=== PATIENT | female | born 1935 | race Caucasian/White ===

== ENCOUNTER 2017-10-08 01:52 | Emergency (ER) | payer MEDICARE ==
[~2017-10-08] VITALS: Ht 167.6 cm; Wt 81.6 kg
[~2017-10-08 01:52] MED LIST: ACETAMINOPHEN325 M2 PO; ALUM-MAG HYDRO360 ML PO; AMINOPHYLLIN200 MG PO; ANTI-FUNGAL1% TP; ARMOUR THYROID120 M1 PO; ARMOUR THYROID90 MG PO; ASPERCREAM1 EA T; ASPERCREME76.5 GM TP; ASPIRIN CHILDRE81 MG PO; AZO STANDARD97.5 MG PO; BIOTIN1000 MCG PO; CALCIUM 600/VIT1 CAP PO; CALCIUM500 M1 PO; CIPRO250 MG PO; CIPRO500 MG PO; CLARITIN LIQUI-10 MG PO; CRANBERRY250 MG PO; CYMBALTA60 MG PO; DIGOX0.125 MG PO; DOCUSATE SODIU100 M2 PO; DOK100 MG PO; FISH OIL 10001000 MG PO; GARLIC100 MG PO; L-LYSINE500 MG PO; LIPITOR10 MG PO; LISINOPRIL10 MG PO; LOPRESSOR25 MG PO; MAGNESIUM400 M1 PO; MAGNESIUM500 MG PO; MELATONIN5 M7 PO; MIRALAX17 GM PO; MULTIVITAMIN1 TA1 PO; NATURAL POTASS595 MG PO; NORCO 5-325 TA1 EACH PO; NP THYROID30 MG PO; NP THYROID90 MG PO; OXY IR5 MG PO; OXYCODONE5 M1 PO; PANTOPRAZOLE40 MG PO; PERCOCET 325 MG1 TA2 PO; PRAD75 PO; PRAVASTATIN SOD20 MG PO; STRESS B COMPLE PO; THEREMS M PO; VITAMIN C1000 M2 PO; VITAMIN D5000 I3 PO; VITAMIN D5000 IU PO; Zestril,Prinivi40 MG PO; [UNRECOGNIZED DRUG - OTHER] PO
[2017-10-08 02:40] LABS: BASO # 0.1 10*3/uL (0.0-0.1); BASO % 0.6 % (0.0-1.0); EOS # 0.3 10*3/uL (0.0-0.4); EOS % 3.5 % (1.0-4.0); HEMOGLOBIN 13.2 g/dl (12.0-16.0); LYMPH # 3.4 10*3/uL (1.3-4.4); LYMPH % 41.3 % (27.0-41.0); MEAN CELL VOLUME 92.3 fl (81.0-99.0); MEAN CORPUSCULAR HGB 29.7 pg (27.0-31.0); MEAN CORPUSCULAR HGB CONC 32.2 g/dl (33.0-37.0); MEAN PLATELET VOLUME 10.8 fl (9.6-12.3); MONO # 0.9 10*3/uL (0.1-1.0); MONO % 10.2 % (3.0-9.0); NEUT # 3.7 10*3/uL (2.3-7.9); PLATELET COUNT AUTOMATED 214 10*3/uL (130-400); RED BLOOD COUNT 4.44 10*6/uL (4.10-5.10); RED CELL DISTRI WIDTH 13.5 % (0-14.5); WHITE BLOOD COUNT 8.3 10*3/uL (4.8-10.8)
[2017-10-08 02:50] LABS: ACT PARTIAL THROMBO TIME 23.9 SECONDS (20.8-31.5); INTERNATIONAL NORM RATIO 1.1 (2.0-3.5)
[2017-10-08 02:56] LABS: BILIRUBIN 1+ (NEGATIVE); BLOOD 3+ (NEGATIVE); CLARITY CLOUDY (CLEAR); COLOR RED (YELLOW); GLUCOSE NEGATIVE (NEGATIVE); KETONE TRACE (NEGATIVE); LEUKO ESTERASE 1+ (NEGATIVE); NITRITE POSITIVE (NEGATIVE); PH 6.5 (5.0-9.0)
[2017-10-08 03:03] LABS: ALBUMIN 3.4 gm/dl (3.1-4.5); ALKALINE PHOSPHATASE 56 U/L (45-117); BUN 19 mg/dl (7-24); CHLORIDE 102 mmol/L (98-107); CREATININE 0.99 mg/dL (0.55-1.02); LIPASE 98 U/L (73-393); POTASSIUM 4.2 mmol/L (3.5-5.1); SGOT/AST 32 IU/L (3-35); SGPT/ALT 31 U/L (12-78); SODIUM 139 mmol/L (136-145); TOTAL PROTEIN 6.9 gm/dL (6.4-8.2)
[2017-10-08 03:09] LABS: BACTERIA 1+; RBC TNTC rbc/hpf (0-2)
== END 2017-10-08 07:00 | disposition other institution (70) ==
LOC: ED 01:52
PROVIDERS: Emergency Medicine Emergency Medical Services
DX: N39.0 Urinary tract infection, site not specified (principal); R31.9 Hematuria, unspecified; I48.91 Unspecified atrial fibrillation; I10 Essential (primary) hypertension; E78.5 Hyperlipidemia, unspecified; E03.9 Hypothyroidism, unspecified; Z90.89 Acquired absence of other organs; Z96.642 Presence of left artificial hip joint; Z90.710 Acquired absence of both cervix and uterus; Z98.890 Other specified postprocedural states; Z86.73 Personal history of transient ischemic attack (TIA), and cerebral infarction without residual deficits; Z79.82 Long term (current) use of aspirin; Z79.899 Other long term (current) drug therapy; Z88.2 Allergy status to sulfonamides; Z88.1 Allergy status to other antibiotic agents; Z88.5 Allergy status to narcotic agent; Z88.6 Allergy status to analgesic agent

== ENCOUNTER 2018-06-10 09:42 | Inpatient (IN) | payer MEDICARE ==
[~2018-06-10] VITALS: Ht 157.5 cm; Wt 70.1 kg
--- NOTE | ~2018-06-10 | EKG ---
[place], [place] ELECTROCARDIOGRAM REPORT NAME: SHIRA SAMS UNIT #: [id number] ROOM: 408 DOCTOR: EPIPHANY DRAFT REPORT BIRTHDATE: [birth year] [facility] Test Date: 2018-06-10 Test Time: 09:55:44 Pat Name: SHIRA SAMS Department: Room: 408 Gender: F Business Account Manager: Mattie Rizzo : 1935 Requested By: PLACIDO STROUD Order Number: [id number] Reading MD: Damon Boles MD Measurements Intervals [place] Rate: 82 P: 39 ME: 187 QRS: 36 QRSD: 93 T: 14 QT: 385 QTc: 450 Interpretive Statements Sinus rhythm Borderline low voltage, extremity leads Minimal ST depression, lateral leads Electronically Signed On 06-14-2018 11:44:29 PST by Damon Boles MD CM:EKGRPT:ELECTROCARDIOGRAM REPORT [id number] PLACIDO STROUD EPIPHANY DRAFT REPORT PLACIDO STROUD
--- NOTE | ~2018-06-10 | CON ---
[place], [place] REPORT OF CONSULTATION NAME: SHIRA SAMS UNIT #: [id number] ROOM: 408 DOCTOR: ANJELICA GARCIA MD BIRTHDATE: [birth year] DOS: 06/11/2018 REASON FOR CONSULTATION: Gram-negative bacteremia. CHIEF COMPLAINT: Altered mental status. HISTORY OF PRESENT ILLNESS: This is an 83-year-old female who was brought to the ER by EMS for altered mental status. Currently, the patient is not the best historian. Most of the history obtained is from medical records. It was reported that around [place] time, the patient had change in her behavior and was found to be unresponsive on admission to the ER. Her UA was checked that showed pyuria and her blood cultures 4/4 bottles on admission are positive for gram-negative bacilli as well as her urine culture shows more than 100,000 colonies of gram-negative bacteria. She did came in with leukocytosis of 16.3, which on repeat is 14.6. No lactic acidosis. The patient has been started on cefepime 2 g q. 12 hours for now. PAST MEDICAL HISTORY: Significant for atrial fibrillation, stroke, closed fracture of multiple pubic rami, bladder prolapse, hypertension, hyperlipidemia, hypothyroidism, urinary incontinence. PAST SURGICAL HISTORY: Adenectomy bladder suspension procedure, hysterectomy, left hip replacement, right breast biopsy, and tonsillectomy. SOCIAL HISTORY: Nonsmoker, nonalcoholic, no illicit drug use. FAMILY HISTORY: Noncontributory at this time. ALLERGIES: SULFA DRUGS, TETRACYCLINE and other allergies as per the EMR. HOME MEDICATIONS: Reviewed. REVIEW OF SYSTEMS: Cannot be obtained at this point as the patient is poorly responsive. PHYSICAL EXAMINATION: VITAL SIGNS: Stable. GENERAL: The patient is not alert and oriented. HEENT: Atraumatic, normocephalic. PERRLA, EOMI. RESPIRATORY: Air entry bilaterally equal. No wheeze or crackles. HEART: S1, S2 normal. Regular rate and rhythm. ABDOMEN: Soft, nontender, nondistended. BACK: No CVA tenderness. GENITOURINARY: Edmonds catheter in place. NEUROLOGIC: Limited exam. SKIN: No rash. LABORATORY DATA AND IMAGING: Reviewed, mentioned in HPI. ASSESSMENT: [place], [place] REPORT OF CONSULTATION NAME: SHIRA SAMS UNIT #: [id number] ROOM: 408 DOCTOR: ANJELICA GARCIA MD BIRTHDATE: [birth year] 1. Pyelonephritis. 2. Gram-negative bacteremia from above. 3. Complicated urinary tract infection with history of bladder suspension procedure/urinary incontinence. PLAN: 1. At this time, okay to keep cefepime 2 grams q. 12. 2. With her history of multiple UTIs in the past with E. coli as well as bladder suspension surgeries, I would recommend getting an imaging. CT abdomen without contrast. Repeat blood cultures have been ordered today. I will follow the patient closely. Thank you for your consult. Please call for any questions. Anjelica Garcia MD CM:CONSTR:REPORT OF CONSULTATION [id number] 06/12/18 1034 interface
[2018-06-10 09:44] VITALS: BP 202/76
[2018-06-10 10:03] LABS: BILIRUBIN NEGATIVE (NEGATIVE); BLOOD 3+ (NEGATIVE); CLARITY CLOUDY (CLEAR); COLOR YELLOW (YELLOW); GLUCOSE NEGATIVE (NEGATIVE); KETONE NEGATIVE (NEGATIVE); LEUKO ESTERASE 3+ (NEGATIVE); NITRITE POSITIVE (NEGATIVE); SPECIFIC GRAVITY 1.015 (1.005-1.030); UROBILINOGEN 0.2 E.U./dl (0.2-1.0)
[2018-06-10 10:14] LABS: HEMATOCRIT 45.9 % (37.0-47.0); MEAN CELL VOLUME 90.2 fl (81.0-99.0); MEAN CORPUSCULAR HGB 29.5 pg (27.0-31.0); MEAN CORPUSCULAR HGB CONC 32.7 g/dl (33.0-37.0); MEAN PLATELET VOLUME 11.6 fl (9.6-12.3); PLATELET COUNT AUTOMATED 198 10*3/uL (130-400); RED BLOOD COUNT 5.09 10*6/uL (4.10-5.10); RED CELL DISTRI WIDTH 14.1 % (0-14.5); WHITE BLOOD COUNT 16.3 10*3/uL (4.8-10.8)
[2018-06-10] MEDS ORDERED: COLACE100 MG PO (10:14)
[2018-06-10] MEDS ORDERED: ATORVASTATIN CA80 M1 PO (10:14)
[2018-06-10] MEDS ORDERED: DIGOXIN125 MCG PO (10:15)
[2018-06-10] MEDS ORDERED: CYMBALTA20 M1 PO (10:15)
[2018-06-10] MEDS ORDERED: LISINOPRIL40 MG PO (10:16)
[2018-06-10] MEDS ORDERED: PROBIOTIC1 EAC1 PO (10:16)
[2018-06-10] MEDS ORDERED: Synthroid,Lev150 MCG PO (10:17)
[2018-06-10] MEDS ORDERED: CALCIUM 600 +1 EAC4 PO (10:20)
[2018-06-10] MEDS ORDERED: COREG12.5 M1 PO (10:22)
[2018-06-10] MEDS ORDERED: ASPIRIN325 M2 PO (10:23)
[2018-06-10 10:25] LABS: BACTERIA 4+; WBC TNTC wbc/hpf (0-5)
[2018-06-10] MEDS ORDERED: MILK OF MA400 MG/5 M PO (10:25)
[2018-06-10] MEDS ORDERED: DULCOLAX10 M1 R (10:25)
[2018-06-10] MEDS ORDERED: [UNRECOGNIZED DRUG - OTHER] R (10:25)
[2018-06-10 10:26] LABS: ALBUMIN 2.6 gm/dl (3.1-4.5); CREATININE 1.15 mg/dL (0.55-1.02); POTASSIUM 3.6 mmol/L (3.5-5.1); TOTAL PROTEIN 7.7 gm/dL (6.4-8.2)
[2018-06-10] MEDS ORDERED: ROBITUSSIN-DM 110 ML PO (10:26)
[2018-06-10 10:27] LABS: TROPONIN I 0.025 ng/ml (<0.045)
[2018-06-10 10:35] LABS: PLATELET SUFFICIENCY NORMAL (NORMAL); TOTAL CELLS COUNTED 100 #CELLS
[2018-06-10 10:36] LABS: DIGOXIN 1.1 ng/ml (0.8-2.0)
[2018-06-10 10:38] VITALS: BP 177/58
[2018-06-10 11:55] VITALS: BP 178/60
[2018-06-10 13:11] VITALS: BP 148/54
--- NOTE | 2018-06-10 13:33 | NUR ---
[facility] 83, admitted to , under the services of HOLA Fairbanks DO with a diagnosis of SEYMOUR, HTN. Chief complaint is DENIES C/O AT PRESENT. Patient arrived via bed from ER. Monitor applied. Initial assessment completed. Vital signs taken and recorded. HOLA FAIRBANKS DO notified of admission to the unit. Orders received. See assessment for past medical history, medications and allergies. Patient and/or family oriented to unit. [facility] visitation policy reviewed. Clothing/patient valuable form completed. MARIA L HILL
--- NOTE | 2018-06-10 15:31 | NUR ---
SPEECH PATHOLOGY Patient seen for bedside swallowing evaluation this date due to concerns of coughing while eating. Patient in bed sleeping upon clinician arrival and able to be awoken with auditory stimuli. Patient on 2 liters O2 via NC with baseline Sp02 at 94%. Patient repositioned to be upright in bed at 90 degree angle. Patient with limited expressive communicative abilities, but demonstrated ability to answer y/n questions via head nods and shakes. Patient also verbalized "yes" on two opportunities with severely reduced vocal intensity. Patient verbally provided with 5 y/n questions, with 3/5 correct responses which included correct answer to location, patient's name, and year. Patient incorrect response on 1/5 trials and did not provide response on remaining trial. Oral motor exam administered. Patient able to follow simple 1-step verbal commands following clinician models. Lingual and labial strength and ROM reduced, in addition to reduced volitional cough. Patient not able to elicit volitional swallow. Patient provided with ice chips x 3. Patient independently chewed ice chips, but required moderate verbal cueing and prompts to initiate pharyngeal swallow. Laryngeal elevation judged to be wfl. Sips of thin liquid via straw administered x 4. Consecutive sips triggered timely pharyngeal swallow, however on final sip or with single sip, patient demonstrated oral holding and required moderate cueing to initiate pharyngeal swallow. No overt s/s of aspiration were observed during all trials of thin liquid. Small bites of applesauce via tsp administered. Patient demonstrated bolus formation, however required mod-max verbal cueing to initiate pharyngeal swallow. Increase bite size administered to heighten sensory input to elicit reflexive pharyngeal swallow, however, patient required verbal cueing to initaite pharyngeal swallow. Reflexive cough demonstrated following trial of tsp of applesauce via spoon. Patient's oral cavity was checked for remaining residues following final trial of PO intake. Sp02 levels remained at 94-95% throughout evaluation. Patient currently is not safe for an oral diet and is recommended NPO. Although no overt s/s of pen/aspiration were observed with sips of thin liquid, patient demonstrates oral holding of thin and pureed consistencies, and requires mod-max verbal cueing and prompts to initaite pharyngeal swallow which reduces safety of patient's swallow mechanism. Patient recommended MBS to furter assess anatomy and physiology of oropharnygeal swallow mechanism, however patient currently is not appropriate for MBS due to reduced ability to follow directions. Speech Therapy to continue follow up treatment of patient to assess for increased awareness and appropriateness for initiation of oral diet and MBS. Results and recommendations were shared with patient's nurse who verbalized understanding. Thank you for this consultation. Please contact speech therapy with any questions. Maylin Gracia MA [employer]
[2018-06-10 16:00] VITALS: BP 154/60
[2018-06-10 20:00] VITALS: BP 156/60; BP 165/56
--- NOTE | 2018-06-10 22:47 | NUR ---
NOTIFIED DR. MORRIS OF CRITICAL BLOOD CULTURES.
[2018-06-11] VITALS (8 sets, daily range): BP systolic 160–210; BP diastolic 56–88
--- NOTE | 2018-06-11 | NUR ---
SLEEPING. NO ACUTE DISTRESS NOTED. RESPIRATIONS EASY. LUNGS DIMINISHED, CLEAR. PULSE OX 95% RA. ABD SOFT WITH HYPOACTIVE BOWEL SOUNDS. SLATER PATENT. TEDS APPLIED PER ORDER. IV FLUIDS INFUSING PER ORDER. CALL LIGHT WITHIN REACH. BED ALARM MAINTAINED FOR SAFETY
--- NOTE | 2018-06-11 01:15 | NUR ---
DR MORRIS AWARE OF + BC. PATIENT RECEIVING IV ANTIBIOTICS WITH REPEAT CULTURES PENDING
--- NOTE | 2018-06-11 06:00 | NUR ---
SLEPT THROUGHOUT NIGHT WITH NO DISTRESS NOTED. RESPIRATIONS EASY. O2 IN USE. IV FLUIDS MAINTAINED. BED ALARM MAINTAINED FOR SAFETY
[2018-06-11 06:29] LABS: HEMATOCRIT 45.4 % (37.0-47.0); HEMOGLOBIN 13.9 g/dl (12.0-16.0); MEAN CELL VOLUME 92.5 fl (81.0-99.0); MEAN CORPUSCULAR HGB 28.3 pg (27.0-31.0); MEAN CORPUSCULAR HGB CONC 30.6 g/dl (33.0-37.0); PLATELET COUNT AUTOMATED 189 10*3/uL (130-400); RED BLOOD COUNT 4.91 10*6/uL (4.10-5.10); RED CELL DISTRI WIDTH 14.5 % (0-14.5); WHITE BLOOD COUNT 14.6 10*3/uL (4.8-10.8)
[2018-06-11 06:57] LABS: ALBUMIN 2.3 gm/dl (3.1-4.5); BUN 37 mg/dl (7-24); CHLORIDE 120 mmol/L (98-107); CHOLESTEROL 122 mg/dL (<200); CREATININE 1.01 mg/dL (0.55-1.02); PHOSPHOROUS 3.3 mg/dL (2.5-4.9); POTASSIUM 3.5 mmol/L (3.5-5.1); SGOT/AST 30 IU/L (3-35); SODIUM 154 mmol/L (136-145); TRIGLYCERIDES 169 mg/dl (<150); VLDL CHOLESTEROL 34 mg/dL (6-40)
[2018-06-11 07:04] LABS: PLATELET SUFFICIENCY NORMAL (NORMAL); TOTAL CELLS COUNTED 100 #CELLS
[2018-06-11 07:06] LABS: ALKALINE PHOSPHATASE 81 U/L (45-117); FREE T4 1.08 ng/dl (0.76-1.46); HDL CHOLESTEROL 13 mg/dl (40-60); LDL CHOLESTEROL 75 mg/dL (9-159); PREALBUMIN 6 mg/dl (20-40); SGPT/ALT 22 U/L (12-78)
[2018-06-11 07:43] LABS: VITAMIN D, 25-HYDROXY 29.7 ng/mL (30-100)
--- NOTE | 2018-06-11 08:05 | NUR ---
ID CONSULT NOTIFIED AT THIS TIME.
--- NOTE | 2018-06-11 08:13 | NUR ---
RETURNED CALL. NEW ORDERS RECEIVED
--- NOTE | 2018-06-11 08:34 | NUR ---
UPDATED ON PATIENTS CONDITION. NEW ORDERS TO BE ENTERED PER PHYSICIAN.
--- NOTE | 2018-06-11 11:30 | NUR ---
NOTIFIED OF CONSULT. NEW ORDERS RECEIVED.
--- NOTE | 2018-06-11 13:15 | NUR ---
IV DIG GIVEN SLOWLY PER ORDER. HR 75. WILL CONTINUE TO MONITOR. CALL LIGHT WITHIN REACH.
--- NOTE | 2018-06-11 16:02 | NUR ---
NOTIFIED REGARDING BP 210/88. NEW ORDERS TO BE ENTERED.
--- NOTE | 2018-06-11 16:13 | NUR ---
IV HYDRALAZINE GIVEN AT THIS TIME PER ORDER FOR ELEVATED BP. WILL RECHECK BP FOR EFFECTIVENESS.
--- NOTE | 2018-06-11 16:21 | NUR ---
NOTIFIED REGARDING MOST RECENT BP 173/75. NO NEW ORDERS. WILL CONTINUE TO MONITOR.
--- NOTE | 2018-06-11 19:37 | NUR ---
24 HR chart check completed.
--- NOTE | 2018-06-11 20:00 | NUR ---
RESTING WITH HOB ELEVATED. RESPIRATIONS EASY. LUNGS DIMINISHED WITH POOR INSPIRATORY EFFORT. PULSE OX 96% 2L. SLATER PATENT. IV FLUIDS INFUSING PER ORDER. CALL LIGHT WITHIN REACH. BED ALARM MAINTAINED FOR SAFETY
--- NOTE | 2018-06-11 21:01 | NUR ---
IV LOPRESSOR GIVEN PER ORDER FOR BP 178/68
--- NOTE | 2018-06-11 23:40 | NUR ---
BP CURRENTLY 180/62 AFTER RECEIVING LORPRESSOR IV AT 2100. DR GAMEZ CONTACTED AND INFORMED. NEW ORDERS TO BE ENTERED
[2018-06-12] VITALS (9 sets, daily range): BP systolic 119–184; BP diastolic 34–74
--- NOTE | 2018-06-12 01:20 | NUR ---
BP IMPROVED 146/52 AFTER RECEIVING HYDRALAZINE IV. DR GAMEZ PRESENT ON FLOOR AND INFORMED
--- NOTE | 2018-06-12 04:00 | NUR ---
SLEEPING. BP 158/60. IV FLUIDS MAINTAINED
[2018-06-12 06:27] LABS: HEMATOCRIT 45.2 % (37.0-47.0); HEMOGLOBIN 14.3 g/dl (12.0-16.0); MEAN CELL VOLUME 92.8 fl (81.0-99.0); MEAN CORPUSCULAR HGB 29.4 pg (27.0-31.0); MEAN CORPUSCULAR HGB CONC 31.6 g/dl (33.0-37.0); MEAN PLATELET VOLUME 11.5 fl (9.6-12.3); PLATELET COUNT AUTOMATED 204 10*3/uL (130-400); RED BLOOD COUNT 4.87 10*6/uL (4.10-5.10); RED CELL DISTRI WIDTH 14.7 % (0-14.5); WHITE BLOOD COUNT 12.3 10*3/uL (4.8-10.8)
--- NOTE | 2018-06-12 06:56 | NUR ---
BC + E COLI. DR GAMEZ CONTACTED AND INFORMED. PATIENT CURRENTLY BEING SEEN BY INFECTIOUS DISEASE AND RECEIVING IV ANTIBIOTICS. NO FURTHER ORDERS RECEIVED
[2018-06-12 07:00] LABS: ALBUMIN 2.2 gm/dl (3.1-4.5); ALKALINE PHOSPHATASE 72 U/L (45-117); CHLORIDE 117 mmol/L (98-107); PHOSPHOROUS 2.8 mg/dL (2.5-4.9); POTASSIUM 3.2 mmol/L (3.5-5.1); SGOT/AST 34 IU/L (3-35); SGPT/ALT 22 U/L (12-78); SODIUM 152 mmol/L (136-145); TOTAL PROTEIN 6.6 gm/dL (6.4-8.2)
[2018-06-12 07:01] LABS: BUN 27 mg/dl (7-24)
[2018-06-12 07:06] LABS: ATYPICAL LYMPHS 3 % (0-0); PLATELET SUFFICIENCY NORMAL (NORMAL); TOTAL CELLS COUNTED 100 #CELLS
[2018-06-12 07:07] LABS: TOXIC GRANULATION SLIGHT; VACUOLATION OF NEUTROPHILS SLIGHT
--- NOTE | 2018-06-12 08:37 | NUR ---
NOTIFIED REGARDING AM LABS. NEW ORDERS RECEIVED.
--- NOTE | 2018-06-12 11:37 | NUR ---
IV LOPRESSOR GIVEN AT THIS TIME PER PRN ORDER FOR BP 176/60. WILL MONITOR EFFECTIVENESS. HR 70'S. BED LOCKED AND IN LOWEST POSITION.
--- NOTE | 2018-06-12 12:00 | NUR ---
ML ROWELL NOTIFIED REGARDING ELEVATED BP. WILL RECHECK EFFECTIVENESS OF LOPRESSOR.
--- NOTE | 2018-06-12 12:41 | NUR ---
BP NOW 164/44. WILL CONTINUE TO MONITOR. HR 70. IVF MAINTAINED. CALL LIGHT WITHIN REACH. PT RESTING COMFORTABLY.
--- NOTE | 2018-06-12 14:30 | NUR ---
DAUGHTER HERE TO VISIT. ML ROWELL IN TO SPEAK WITH FAMILY REGARDING PLAN OF CARE.
--- NOTE | 2018-06-12 15:29 | NUR ---
SPOKE WITH POA REGARDING PEG TUBE INSERTION. POA NO LONGER WANTS TO PROCEED WITH PEG TUBE INSERTION. ML ROWELL NOTIFIED. WILL NOTIFY .
--- NOTE | 2018-06-12 17:15 | NUR ---
NOTIFIED REGARDING REFUSAL FOR PEG TUBE INSERTION.
--- NOTE | 2018-06-12 19:42 | NUR ---
24 HR chart check completed.
--- NOTE | 2018-06-12 20:30 | NUR ---
RESTING WITH EYES CLOSED, OFFERS NO VERBAL RESPONSE. RESPIRATIONS EASY. LUNGS DIMINISHED WITH POOR INSP EFFORT. PULSE OX 96% 2L. +1 BLE EDEMA, TEDS PRESENT AT BEDSIDE. SLATER PATENT. IV FLUIDS INFUSING PER ORDER. CALL LIGHT WITHIN REACH. BED ALARM MAINTAINED FOR SAFETY
[2018-06-13] VITALS: BP 111/42; BP 120/62
--- NOTE | 2018-06-13 | NUR ---
CONTINUES TO REST WITH NO ACUTE DISTRESS NOTED. RESPIRATIONS EASY. VSS. IV FLUIDS MAINTAINED PER ORDER. CALL LIGHT WITHIN REACH. BED ALARM MAINTAINED FOR SAFETT
--- NOTE | 2018-06-13 02:45 | NUR ---
RESTING WITH EYES CLOSED AND NO DISTRESS NOTED
--- NOTE | 2018-06-13 06:00 | NUR ---
STATUS UNCHANGED. RESTING WITH EYES CLOSED. RESPIRATIONS EASY. O2 IN USE. IV FLUIDS MAINTAINED. CALL LIGHT WITHIN REACH. BED ALARM MAINTAINED
--- NOTE | 2018-06-13 06:35 | NUR ---
PHYSICAL THERAPY Nursing screen recieved. Patient not appropriate for PT services at this time. Thank you. Angie Hicks,PT
[2018-06-13 06:38] LABS: HEMATOCRIT 42.4 % (37.0-47.0); HEMOGLOBIN 12.9 g/dl (12.0-16.0); MEAN CELL VOLUME 93.6 fl (81.0-99.0); MEAN CORPUSCULAR HGB 28.5 pg (27.0-31.0); MEAN CORPUSCULAR HGB CONC 30.4 g/dl (33.0-37.0); MEAN PLATELET VOLUME 11.5 fl (9.6-12.3); PLATELET COUNT AUTOMATED 195 10*3/uL (130-400); RED BLOOD COUNT 4.53 10*6/uL (4.10-5.10); RED CELL DISTRI WIDTH 14.9 % (0-14.5); WHITE BLOOD COUNT 11.2 10*3/uL (4.8-10.8)
[2018-06-13 07:04] LABS: ALBUMIN 1.9 gm/dl (3.1-4.5); ALKALINE PHOSPHATASE 63 U/L (45-117); BUN 25 mg/dl (7-24); CHLORIDE 115 mmol/L (98-107); CREATININE 0.95 mg/dL (0.55-1.02); POTASSIUM 3.4 mmol/L (3.5-5.1); SGOT/AST 54 IU/L (3-35); SGPT/ALT 32 U/L (12-78); SODIUM 148 mmol/L (136-145); TOTAL PROTEIN 6.1 gm/dL (6.4-8.2)
[2018-06-13 07:11] LABS: BASOPHILS 1 % (0-1); TOTAL CELLS COUNTED 100 #CELLS
[2018-06-13 07:12] LABS: PLATELET SUFFICIENCY NORMAL (NORMAL)
[2018-06-13 08:00] VITALS: BP 160/67
--- NOTE | 2018-06-13 09:00 | NUR ---
case management visits with patient, patient is a retirement resident of [facility]. will contact [facility] and see if patient is able to return when medically stable
--- NOTE | 2018-06-13 09:40 | NUR ---
SPEECH PATHOLOGY Treatment attempted this am. Patient was in bed, with eyes closed and did not respond to any stimuli. Recommend continued NPO due to severity of status. Continue treatment as appropriate. SHALOM ZAMORA MSCCC-BUSINESS ANALYST SALES OPERATIONS
[2018-06-13 12:00] VITALS: BP 150/52
--- NOTE | 2018-06-13 12:11 | NUR ---
Nutritional Support Services Note: Pt remains NPO, Refuses Peg tube. IVF as ordered. Condition is poor. Will continue to follow. Helen Galindo Rdn Ld
--- NOTE | 2018-06-13 12:35 | NUR ---
Spoke with Kaia at [facility]. Patient is [facility] at [facility] and does not require a precert prior to return. Pt. can return when stable for discharge.
[2018-06-13 16:00] VITALS: BP 159/42
[2018-06-13 20:00] VITALS: BP 177/42
[2018-06-14 01:17] VITALS: BP 176/60
--- NOTE | 2018-06-14 02:02 | NUR ---
1X HYDRALAZINE GIVEN AT THIS TIME FOR SBP 170'S
[2018-06-14 08:00] VITALS: BP 164/60
[2018-06-14 11:59] VITALS: BP 155/44
--- NOTE | 2018-06-14 13:34 | NUR ---
PT MEDICATED WITH TYLENOL PER PRN ORDER FOR C/O HEADACHE. WILL MONITOR FOR EFFECTIVENESS
[2018-06-14 16:00] VITALS: BP 179/52
[2018-06-14 20:00] VITALS: BP 166/60
--- NOTE | 2018-06-14 21:00 | NUR ---
dr perez notified of pt's bp 166/60 and hr in 50's. also stated that standing order for metoprolol did not help her bp last night. dr states to watch pt's bp and he will review her chart
[2018-06-15] VITALS: BP 160/50
[2018-06-15 08:00] VITALS: BP 178/50
--- NOTE | 2018-06-15 09:48 | NUR ---
SPEECH PATHOLOGY Treatment attempted this am. Patient was completely unresponsive. Hospice has been consulted. Patient remains NPO due to poor status. Discharge speech pathology services at this time. Thank you for this referral. SHALOM ZAMORA MSCCC-AIRCRAFT SYSTEMS REPAIRER
[2018-06-15 12:00] VITALS: BP 152/58
--- NOTE | 2018-06-15 12:00 | NUR ---
Spoke with Richa at [facility] who stated the nurse is on her way to the hospital now and should be here within 15 minutes to meet with family and finalize all paperwork.
[2018-06-15] MEDS ORDERED: LOPRESSOR5 MG/5 ML IV (14:45)
[2018-06-15] MEDS ORDERED: ONDANSETRON4 MG SL (14:45)
--- NOTE | 2018-06-15 14:50 | NUR ---
Faxed updated clinicals to [facility] for review. [facility] stated they will admit patient tomorrow afternoon after she returns to the senior living, they will not be admitting patient under GIP.
--- NOTE | 2018-06-15 19:24 | NUR ---
[facility] HERE TO TRANSPORT PATIENT TO [facility]. IV HEP LOCK AND SLATER MAINTAINED PER DOCTOR ORDER. PER DAYSHIFT NURSE, [facility] IS AWARE
--- NOTE | 2018-06-15 19:31 | NUR ---
JACQUE GIPSON LEFT WITH PATIENT AT THIS TIME
== END 2018-06-15 19:31 | disposition hospice, home (50) | DRG 682 ==
LOC: ED 09:42 → EDHOLD 12:29 → 4E 12:29
PROVIDERS: Internal Medicine Gastroenterology; Internal Medicine Nephrology; Nurse Practitioner Family; Registered Nurse; ADMIT Internal Medicine
DX: N17.0 Acute kidney failure with tubular necrosis (principal); G93.41 Metabolic encephalopathy; E43 Unspecified severe protein-calorie malnutrition; I16.1 Hypertensive emergency; E87.0 Hyperosmolality and hypernatremia; R78.81 Bacteremia; Z66 Do not resuscitate; Z51.5 Encounter for palliative care; N12 Tubulo-interstitial nephritis, not specified as acute or chronic; E86.0 Dehydration; I48.2 Chronic atrial fibrillation; I10 Essential (primary) hypertension; B96.20 Unspecified Escherichia coli [E. coli] as the cause of diseases classified elsewhere; E87.6 Hypokalemia; E03.9 Hypothyroidism, unspecified; Z96.642 Presence of left artificial hip joint; E78.2 Mixed hyperlipidemia; E87.8 Other disorders of electrolyte and fluid balance, not elsewhere classified; E80.6 Other disorders of bilirubin metabolism; Z87.440 Personal history of urinary (tract) infections; Z86.73 Personal history of transient ischemic attack (TIA), and cerebral infarction without residual deficits; Z90.710 Acquired absence of both cervix and uterus; Z80.41 Family history of malignant neoplasm of ovary; Z88.6 Allergy status to analgesic agent; Z88.1 Allergy status to other antibiotic agents; Z88.2 Allergy status to sulfonamides; Z88.8 Allergy status to other drugs, medicaments and biological substances; Z91.018 Allergy to other foods; Z79.82 Long term (current) use of aspirin; Z79.899 Other long term (current) drug therapy; Z68.28 Body mass index [BMI] 28.0-28.9, adult